=== PATIENT | female | born 1965 ===

== ENCOUNTER → 2022-11-23 06:29 | Outpatient (CLI) | payer OTHER | END | disposition home or self-care (01) | LOC: LAB 06:29 | DX: E07.9 Disorder of thyroid, unspecified (principal); N39.9 Disorder of urinary system, unspecified; D50.8 Other iron deficiency anemias; B34.9 Viral infection, unspecified; I10 Essential (primary) hypertension; E78.2 Mixed hyperlipidemia; R19.2 Visible peristalsis; E11.9 Type 2 diabetes mellitus without complications; R80.9 Proteinuria, unspecified; E55.9 Vitamin D deficiency, unspecified; Z00.00 Encounter for general adult medical examination without abnormal findings ==

== ENCOUNTER → 2022-11-24 11:10 | Outpatient (CLI) | payer OTHER | END | disposition home or self-care (01) | LOC: LAB 11:10 | DX: E07.9 Disorder of thyroid, unspecified (principal); N39.0 Urinary tract infection, site not specified; D50.8 Other iron deficiency anemias; I10 Essential (primary) hypertension; E78.2 Mixed hyperlipidemia; R19.2 Visible peristalsis; E11.9 Type 2 diabetes mellitus without complications; R80.9 Proteinuria, unspecified; E55.9 Vitamin D deficiency, unspecified; Z00.00 Encounter for general adult medical examination without abnormal findings ==

== ENCOUNTER 2023-03-21 09:06 | Outpatient (CLI) | payer OTHER ==
[2023-03-21 10:26] LABS: HEMATOCRIT 39.6 % (36.0-45.00); HEMOGLOBIN 13.6 g/dL (12.0-15.00); MEAN CELL VOLUME 91.2 fL (80.00-100.00); MEAN CORPUSCULAR HEMOGLOBIN 31.3 pg (27.00-32.0); MEAN CORPUSCULAR HGB CONC 34.3 g/dl (32.0-36.0); PLATELET COUNT 278 K/uL (150-450); RED BLOOD COUNT 4.35 M/uL (4.00-6.00); RED CELL DISTRIBUTION WIDTH 13.9 % (11.5-14.5)
[2023-03-21 11:47] LABS: ALBUMIN 3.9 gm/dL (3.4-5.0); BILIRUBIN TOTAL 0.45 mg/dL (0.3-1.2); CALCIUM 9.5 mg/dL (8.5-10.1); CREATININE SERUM 0.75 mg/dL (0.55-1.02); GFR 79.09; GLOBULINA 3.3 G/DL (2.4-3.5); POTASSIUM 4.84 mEq/L (3.5-5.1); TOTAL PROTEIN 7.2 gm/dL (6.4-8.2)
[2023-03-21 12:31] LABS: FOLIC ACID 15.3 ng/ml (4.78-20); VITAMIN D3 25 HYDROXY 36.14 ng/ml (30-120)
== END 2023-03-21 09:07 | disposition home or self-care (01) ==
LOC: LAB 09:06
DX: Z00.00 Encounter for general adult medical examination without abnormal findings (principal); E07.9 Disorder of thyroid, unspecified; N39.0 Urinary tract infection, site not specified; D50.8 Other iron deficiency anemias; B34.9 Viral infection, unspecified; I10 Essential (primary) hypertension; E78.2 Mixed hyperlipidemia; R19.2 Visible peristalsis; E11.9 Type 2 diabetes mellitus without complications; R80.9 Proteinuria, unspecified; E55.9 Vitamin D deficiency, unspecified

== ENCOUNTER → 2023-07-26 09:29 | Outpatient (CLI) | payer OTHER ==
[2023-07-26 10:17] LABS: HEMATOCRIT 39.8 % (36.0-45.00); HEMOGLOBIN 13.3 g/dL (12.0-15.00); MEAN CELL VOLUME 92.9 fL (80.00-100.00); MEAN CORPUSCULAR HEMOGLOBIN 31.1 pg (27.00-32.0); MEAN CORPUSCULAR HGB CONC 33.5 g/dl (32.0-36.0); PLATELET COUNT 287 K/uL (150-450); RED BLOOD COUNT 4.28 M/uL (4.00-6.00); RED CELL DISTRIBUTION WIDTH 13.3 % (11.5-14.5)
[2023-07-26 11:16] LABS: URINE APPEARANCE Clear; URINE BILIRRUBIN Negative (NEGATIVE); URINE BLOOD Small; URINE COLOR Yellow; URINE GLUCOSE Negative (NEGATIVE); URINE LEUKOCYTE Negative; URINE NITRATE Negative; URINE PROTEIN Trace (NEGATIVE)
[2023-07-26 11:20] LABS: URINE BACTERIA 69.2 uL (0.0-1933); URINE EPITHELIAL CELLS 9.8 uL (0.0-38.8); URINE RBC 23.4 uL (0.0-20.8); URINE WBC 2.3 uL (0.0-23.2)
[2023-07-26 11:36] LABS: ALBUMIN 3.9 gm/dL (3.4-5.0); BILIRUBIN TOTAL 0.44 mg/dL (0.3-1.2); BILIRUBIN,CONJUGATED 0.11 mg/dL (0.0-0.2); BILIRUBIN,UNCONJUGATED 0.33 mg/dL (0.0-0.6); CALCIUM 9.7 mg/dL (8.5-10.1); CHOL HDL RATIO 3.9 (0-5.0); CREATININE SERUM 0.78 mg/dL (0.55-1.02); GFR 75.59; GLOBULINA 3.3 G/DL (2.4-3.5); POTASSIUM 4.76 mEq/L (3.5-5.1); T4 TOTAL 7.09 UG/DL (4.8-13.9); TOTAL PROTEIN 7.2 gm/dL (6.4-8.2); TSH 1.01 uIU/mL (0.358-3.74)
[2023-07-26 11:48] LABS: CORTISOL 9.29 ug/dl; T3 TOTAL 1.15 ng/ml (0.846-2.02); VITAMIN D3 25 HYDROXY 56.28 ng/ml (30-120)
== END | disposition home or self-care (01) ==
LOC: LAB 09:29
PROVIDERS: ATTEND General Practice
DX: E11.9 Type 2 diabetes mellitus without complications (principal); I10 Essential (primary) hypertension; E78.5 Hyperlipidemia, unspecified; E55.9 Vitamin D deficiency, unspecified; N39.0 Urinary tract infection, site not specified; R10.9 Unspecified abdominal pain; Z00.00 Encounter for general adult medical examination without abnormal findings

== ENCOUNTER 2023-09-11 09:38 | Outpatient (CLI) | payer OTHER | END 2023-09-11 09:41 | disposition home or self-care (01) | LOC: MAMO-SONO 09:38 | PROVIDERS: ATTEND Obstetrics & Gynecology | DX: Z12.31 Encounter for screening mammogram for malignant neoplasm of breast (principal) ==

== ENCOUNTER 2024-04-05 08:46 | Outpatient (CLI) | payer OTHER ==
[2024-04-05 10:41] LABS: URINE APPEARANCE Clear; URINE BILIRRUBIN Negative (NEGATIVE); URINE BLOOD Trace; URINE COLOR Yellow; URINE GLUCOSE Negative (NEGATIVE); URINE KETONE Negative (NEGATIVE); URINE LEUKOCYTE Negative; URINE NITRATE Negative; URINE PROTEIN Negative (NEGATIVE); URINE UROBILINOGEN 0.2 E.U./dl
[2024-04-05 10:51] LABS: URINE EPITHELIAL CELLS 2.7 uL (0.0-38.8); URINE RBC 6.2 uL (0.0-20.8)
[2024-04-05 10:54] LABS: HEMATOCRIT 38.1 % (36.0-45.00); HEMOGLOBIN 13.1 g/dL (12.0-15.00); MEAN CELL VOLUME 89.4 fL (80.00-100.00); MEAN CORPUSCULAR HEMOGLOBIN 30.6 pg (27.00-32.0); MEAN CORPUSCULAR HGB CONC 34.3 g/dl (32.0-36.0); PLATELET COUNT 387 K/uL (150-450); RED BLOOD COUNT 4.26 M/uL (4.00-6.00); RED CELL DISTRIBUTION WIDTH 13.5 % (11.5-14.5)
[2024-04-05 11:04] LABS: URINE WBC 0.3 uL (0.0-23.2)
[2024-04-05 11:10] LABS: BILIRUBIN TOTAL 0.46 mg/dL (0.3-1.2); CALCIUM 10.3 mg/dL (8.5-10.1); CHOL HDL RATIO 4.3 (0-5.0); CREATININE SERUM 0.7 mg/dL (0.55-1.02); GFR 85.35; POTASSIUM 5.09 mEq/L (3.5-5.1); TSH 0.848 uIU/mL (0.358-3.74)
== END 2024-04-05 08:47 | disposition home or self-care (01) ==
LOC: LAB 08:46
PROVIDERS: ATTEND General Practice
DX: E11.9 Type 2 diabetes mellitus without complications (principal); E78.5 Hyperlipidemia, unspecified; Z12.11 Encounter for screening for malignant neoplasm of colon; R42 Dizziness and giddiness; N30.00 Acute cystitis without hematuria; E11.65 Type 2 diabetes mellitus with hyperglycemia; E03.8 Other specified hypothyroidism